=== PATIENT | female | born 1960 | race Caucasian/White ===

== ENCOUNTER 2017-11-27 07:18 | Emergency (ER) | payer OTHER ==
[2017-11-27 07:46] VITALS: TEMP 98; O2SAT 98
[2017-11-27] MEDS ORDERED: Naproxen 500 MG TAB PO ONE (08:18)
--- NOTE | 2017-11-27 08:39 | ED PDOC ---
HPI: Back Time Seen by Provider: 11/27/17 08:03 Chief Complaint (Nursing): Back Pain Chief Complaint (Provider): Back Pain History Per: Patient History/Exam Limitations: no limitations Onset/Duration Of Symptoms: Days (1x) Current Symptoms Are (Timing): Still Present Quality Of Discomfort: Pressure (when sitting), "Pain" Additional Complaint(s): 57 y/o female presents to the ED complaining of lower back pain onset one day ago. Reports the pain began after she lifted a heavy 14 months baby. She feels the back pain when she is sitting and "feels pressure". The patient took two Advils and felt better, but the pain came back in the morning. Denies nausea, vomiting, fever, or urinary problems. Reports she had the flu three weeks ago. of note: patient is allergic to penicillin PMD: No Family Provider Past Medical History Reviewed: Historical Data, Nursing Documentation, Vital Signs Vital Signs: Last Vital Signs Temp 98 F 11/27/17 07:43 Pulse 84 11/27/17 07:43 Resp 20 11/27/17 07:43 BP 117/63 11/27/17 07:43 Pulse Ox 98 11/27/17 07:43 - Medical History PMH: No Chronic Diseases - Family History Family History: States: Unknown Family Hx - Home Medications Home Medications: Ambulatory Orders Medication Instructions Recorded Cyclobenzaprine HCl [Flexeril] 10 mg PO Q8H PRN #15 tab 09/07/15 Diclofenac Epolamine [Flector] 1.3 patch TP BID #30 tdm 09/07/15 Tramadol HCl [Ultram] 50 mg PO BID PRN #30 tablet 06/05/16 Cyclobenzaprine [Flexeril] 10 mg PO TID #30 tab 11/27/17 Naproxen [Naprosyn] 500 mg PO BID PRN #20 tablet 11/27/17 - Allergies Allergies/Adverse Reactions: Allergies Allergy/AdvReac Type Severity Reaction Status Date / Time Penicillins Allergy RASH Verified 11/27/17 07:43 Review of Systems ROS Statement: Except As Marked, All Systems Reviewed And Found Negative Constitutional: Negative for: Fever Gastrointestinal: Negative for: Nausea, Vomiting Genitourinary Female: Negative for: Other (urinary problems) Musculoskeletal: Positive for: Back Pain Physical Exam - Reviewed Nursing Documentation Reviewed: Yes Vital Signs Reviewed: Yes - Physical Exam Appears: Positive for: Well, Non-toxic, No Acute Distress Head Exam: Positive for: ATRAUMATIC, NORMAL INSPECTION, NORMOCEPHALIC Skin: Positive for: Normal Color, Warm, Dry Eye Exam: Positive for: EOMI, Normal appearance, PERRL ENT: Positive for: Normal ENT Inspection Neck: Positive for: Normal, Painless ROM, Supple. Negative for: Decreased ROM Cardiovascular/Chest: Positive for: Regular Rate, Rhythm. Negative for: Murmur , Bradycardia Respiratory: Positive for: Normal Breath Sounds. Negative for: Decreased Breath Sounds, Wheezing, Respiratory Distress Gastrointestinal/Abdominal: Positive for: Normal Exam, Bowel Sounds, Soft. Negative for: Tenderness, Guarding, Rebound Back: Positive for: Normal Inspection. Negative for: L CVA Tenderness, R CVA Tenderness Extremity: Positive for: Normal ROM. Negative for: Tenderness, Pedal Edema, Deformity Neurologic/Psych: Positive for: Alert, Oriented (x3), Gait - ECG O2 Sat by Pulse Oximetry: 98 (RA) Pulse Ox Interpretation: Normal - Progress Re-evaluation Time: 09:05 Condition: Re-examined Medical Decision Making Medical Decision Making: Time:08:19 Initial Plan: --ED Urine dipstick --Flexeril 10mg --Naproxen 500mg --Reevaluation Documented by Kinza Cameron acting as a scribe for Natalya Vyas MD. All medical record entries made by the Scribe were at my direction and personally dictated by me. I have reviewed the chart and agree that the record accurately reflects my personal performance of the history, physical exam, medical decision making, and the department course for this patient. I have also personally directed, reviewed, and agree with the discharge instructions and disposition. Disposition - Clinical Impression Clinical Impression: Back strain - Patient ED Disposition Is Patient to be Admitted: No Doctor Will See Patient In The: Office Counseled Patient/Family Regarding: Diagnosis, Need For Followup, Rx Given - Disposition Referrals: [facility] [place] [Outside] [facility] [Outside] [facility] [place] [Outside] Disposition: Routine/Home Disposition Time: 09:30 Condition: IMPROVED Prescriptions: Cyclobenzaprine [Flexeril] 10 mg PO TID #30 tab Naproxen [Naprosyn] 500 mg PO BID PRN #20 tablet PRN Reason: Pain, Moderate (4-7) Instructions: Muscle Strain Forms: [facility] ([place]) Print Language: [place] - POA Present On Arrival: Falls Or Trauma
[2017-11-27 10:56] VITALS: BP 110/70; PULSE 74; RESP 22
== END 2017-11-27 10:56 | disposition home or self-care (01) ==
LOC: H.ER 07:18
DX: S39.012A Strain of muscle, fascia and tendon of lower back, initial encounter (principal); X50.9XXA Other and unspecified overexertion or strenuous movements or postures, initial encounter; Y92.89 Other specified places as the place of occurrence of the external cause; Z88.0 Allergy status to penicillin